=== PATIENT | female | born 1990 | race Caucasian/White ===

== ENCOUNTER 2017-11-16 16:55 | Observation (INO) ==
[2017-11-16] MEDS ORDERED: Ringers Solution, Lactated 1,000 ML IVC SCH (17:15)
[2017-11-16 17:36] LABS: Amphetamine Screen,Urine Negative ng/mL (Cutoff=1000); Barbiturate Screen,Urine Negative ng/mL (Cutoff=200); Benzodiazepines Screen,Urine Negative ng/mL (Cutoff=200); Cannabinoid Screen,Urine Negative ng/mL (Cutoff = 50); Cocaine Screen,Urine Negative ng/mL (Cutoff= 300); Opiate Screen,Urine Negative ng/mL (Cutoff=300); Phencyclidine Screen,Urine Negative ng/mL (Cutoff=25)
--- NOTE | 2017-11-16 17:41 | OB/GYN Progress Note ---
Date of Encounter: 11/16/17 Time of Encounter: 17:39 - Assessment and Plan (1) tachycardia Current Visit: Yes Status: Acute FHR 140, category 1 Reactive NST IV fluid bolus Discharged home with labor precaution and kick counts Follow-up appointment as scheduled and prn (2) 36 weeks gestation of Current Visit: Yes Status: Acute Subjective - Subjective Interval history: at 36 weeks and 3 days presents to triage from office for evaluation of tachycardia. Denies vaginal bleeding, leaking fluid and contractions. Antepartum ROS: movement normal, no loss of fluid, no vaginal bleeding, no contractions Objective - Vital Signs Vital Signs: VSS Intake and Output 11/16/17 11/16/17 11/16/17 07:59 15:59 23:59 Other: Weight 102 kg Patient Weight 11/16/17 23:59 Weight 102 kg - Exam FHR: category 1 FHR comments: FHR 140, Category 1 Auscultation: bilateral: normal Abdomen: Present: soft, gravid Uterus: Present: normal. Absent: tenderness
== END 2017-11-16 19:21 | disposition home or self-care (01) ==
LOC: 1NENULAB
PROVIDERS: ADMIT Obstetrics & Gynecology; ATTEND Obstetrics & Gynecology

== ENCOUNTER 2017-12-09 08:00 | Inpatient (IN) ==
[2017-12-09] MEDS ORDERED: Famotidine 20 MG/2 ML VIAL IVP PRN (08:24)
[2017-12-09] MEDS ORDERED: *HR* Nalbuphine 10 MG/ML AMPUL IVP PRN (08:24)
[2017-12-09] MEDS ORDERED: Naloxone 0.4 MG/ML INJ IVP PRN (08:24)
[2017-12-09] MEDS ORDERED: Metoclopramide 10 MG/2 ML VIAL IVP PRN (08:24)
[2017-12-09] MEDS ORDERED: Ringers Solution, Lactated 1,000 ML IVC SCH (08:30)
[2017-12-09] MEDS ORDERED: Oxytocin 20 units/ LR 1000 mL 20 UNIT/1,000 ML BAG IVC SCH ×2 (08:30→19:56)
[2017-12-09 08:58] LABS: Basophils % 0.2 %; Eosinophils # 0.1 K/mcL (0.0-0.6); Eosinophils % 0.5 %; Hematocrit 36.3 % (35.3-44.9); Hemoglobin 12.8 g/dL (11.5-15.4); Immature Granulocytes % 0.6 % (0-4); Lymphocytes # 2.3 K/mcL (0.6-4.6); Mean Corpuscular HGB Conc 35.3 g/dL (31.6-35.5); Mean Corpuscular Hemoglobin 30.5 pg (28.0-33.3); Mean Corpuscular Volume 86.4 fL (83.0-100.0); Mean Platelet Volume 11.8 fL (9.4-12.4); Monocytes # 0.7 K/mcL (0.0-1.3); Monocytes % 4.6 %; Neutrophils # 11.4 K/mcL (1.6-8.9); Platelet Count 166 K/mcL (140-400); Red Cell Distribution Width 13.3 % (11.5-14.5); Segmented Neutrophils % 78.1 %
--- NOTE | 2017-12-09 09:16 | OB/GYN History & Physical ---
Date of Encounter: 12/09/17 Time of Encounter: 09:05 Assessment and Plan (1) Polyhydramnios Current visit: Yes Status: Acute 39 week 5 days full term IUP Polyhydramnios Mildly elevated VWD factor GBS negative FHR category 1 IV Pitocin induction per protocol Type and screen 2units PRBC Nubain/Epidural at patient request for pain control Anticipate vaginal delivery POC discussed with Dr. Sidhu Qualifiers: Fetus number: single or unspecified fetus Trimester: third trimester Qualified Code(s): O40.3XX0 - Polyhydramnios, third trimester, not applicable or unspecified (2) 39 weeks gestation of Current visit: Yes Status: Acute History of Present Illness HPI: Ms. Farris is a 27 year old G1Po at 39 weeks and 5 days that presents to Labor and Delivery today for scheduled induction of labor due to Polyhydramnios. Denies vaginal bleeding and leaking fluid, states baby is moving well. Denies DAMON , visual disturbances and epigastric pain. complicated with Polyhydramnios and mildly elevated Von Willebrand Disease factor. Past medical history positive for asthma, IBS-C, and Cholecystectomy. POC and IV Pitocin risks discussed, patient states understanding and is agreeable. Desires to breast feed, unsure if she wants epidural for pain control at this time. is present and supportive. Labs: O positive GBS negative RPR non reactive Hep B negative HIV negative Rubella immune Varicella immune UDS negative Past Med Surg Social Fam HX - Past Medical History Medical history: asthma Additional medical history: has not used inhaler in a few years Psychiatric history: no psych history - Past Surgical History Surgical History: cholecystectomy Additional surgical history: 2015 cholecystectomy - Social History Smoking Status: Never smoker Smokeless Tobacco Status: No Alcohol use: none Drug use: none - Family History Mother Living Status: Still Living Hx Family Cardiac Disorders: Yes (hypertension) Hx Family Medical Disorders: Yes (vonwillenbrand's disease, migraines) Obstetrical History - Pregnancies : 1 Medications and Allergies Prenata Chewable Tablet 1 tab PO DAILY 11/16/17 [History] 3 Allergy/AdvReac Type Severity Reaction Status Date / Time ceftriaxone [From Rocephin] Allergy Rash Verified 11/16/17 17:16 Sulfa (Sulfonamide Allergy Rash Verified 11/16/17 17:16 Antibiotics) Exam - Constitutional Constitutional: well developed, well nourished, no acute distress - HEENT HEENT: Mucus Membranes Moist - Neck Neck exam: full ROM, normal inspection - Lungs Respiratory exam: CTAB - Cardiovascular Cardiovascular exam: RRR - Abdomen Abdomen: Present: bowel sounds normal, gravid, non tender - Extremities Extremities exam: full ROM, normal inspection, warm Deep Tendon Reflex Grade: 2+ Normal - Cervix Dilation: 4 (VE in office per Dr. Martin) Effacement: 90 Station: -1 - Uterus Uterus exam: Absent: tender Results Result Diagrams: 12/09/17 08:26 Abnormal lab results WBC 14.6 K/mcL (4.3-11.1) H 12/09/17 08:26 Neutrophils # 11.4 K/mcL (1.6-8.9) H 12/09/17 08:26 All other labs normal. - VTE Reasons for not Prescribing Prophylaxis: Treatment not Indicated - Low risk for VTE
[2017-12-09 09:47] LABS: Amphetamine Screen,Urine Negative ng/mL (Cutoff=1000); Barbiturate Screen,Urine Negative ng/mL (Cutoff=200); Benzodiazepines Screen,Urine Negative ng/mL (Cutoff=200); Cannabinoid Screen,Urine Negative ng/mL (Cutoff = 50); Cocaine Screen,Urine Negative ng/mL (Cutoff= 300); Opiate Screen,Urine Negative ng/mL (Cutoff=300); Phencyclidine Screen,Urine Negative ng/mL (Cutoff=25)
[2017-12-09] MEDS: Ondansetron 4 MG/2 ML VIAL IVP PRN ×2 (11:15→17:03)
--- NOTE | 2017-12-09 11:32 | Anesthesia Evaluation PreOp ---
Date of Encounter: 12/09/17 Time of Encounter: 11:30 - Past History Pulmonary History: Asthma Other Medical History: GERD, Other (ibs, [place]) Anesthesia History: No Prior Anesthetic Complications, Past Anesthesia (álvaro 2014) Alcohol Use: none Drug use: none Medications and Allergies Prenata Chewable Tablet 1 tab PO DAILY 11/16/17 [History] 3 Allergy/AdvReac Type Severity Reaction Status Date / Time ceftriaxone [From Rocephin] Allergy Rash Verified 11/16/17 17:16 Sulfa (Sulfonamide Allergy Rash Verified 11/16/17 17:16 Antibiotics) - Meds/Allergy Pre-op Review Medications Reviewed: Yes Allergies Reviewed: Yes Beta Blockers on Current Med List: No Anesthesia Results - Labs 12/09/17 08:26 Anesthesia Exam 138/88 64 fht 129 Height: 5'4" Weight: 103 NPO (# of Hours): 3 Pain Scale: 8 Pain Scale Used: Numeric (1 - 10) - HEENT Pupil (Motor): Pupils equal Mallampati: II Teeth: Normal Oral Opening: Greater than 3 - DRUM LOADER AND UNLOADER LOC: Oriented DRUM LOADER AND UNLOADER Motor: Normal RUE, Normal LUE, Normal RLE, Normal LLE, Normal Face DRUM LOADER AND UNLOADER Sensory: Normal: RUE, LUE, RLE, LLE, Face - Cardiac Rhythm: Regular Murmur: None - Pulmonary Breath Sounds: bilateral Clear Respiratory Effort: Symmetrical Anesthesia Assess/Plan ASA Score: 3 (asthma, [place]) Modified [place] Scale for Level of Consciousness: Cooperative, oriented, and tranquil Anesthetic Plan: Regional Autologous Blood: No Monitoring Plan: Standard Monitors Recovery Plan: Other (risks discussed questions answered, consented)
[2017-12-09] MEDS ORDERED: *HR* Ropivacaine/PF 0.2% 20 ML VIAL EP ONE (11:35)
[2017-12-09] MEDS ORDERED: *HR* Ropivacaine/PF 0.2% 20 ML VIAL ONE (11:38)
[2017-12-09] MEDS ORDERED: Epidural Premix (fent/bupiv) 110 ML EP ONE (11:38)
[2017-12-09] MEDS ORDERED: Bupivacaine-MPF 0.5% 25 ML, FentaNYL (PF) 250 MCG in 0.9 % Sodium Chloride 80 ML EP SCH (11:45)
[2017-12-09] MEDS ORDERED: Epidural Premix (fent/bupiv) 110 ML EP SCH (11:45)
--- NOTE | 2017-12-09 12:12 | Anesthesia Procedures ---
Date of Encounter: 12/09/17 Time of Encounter: 12:10 Procedures: Anesthesia - Epidural/Spinal Patient ID/Chart reviewed: Yes Patient examined: Yes OB Eval: Gestational age: 39.5 OB Eval: : 1 OB Eval: Hx Para: 0 OB Eval: Dilated at (cm): 5 OB Eval: Contractions: Non-stressed pattern Consent Obtained: Yes Supplemental Oxygen: None/Room Air Site Prep: Aseptic Technique, Sterile prep and drape, 0.5% Chlorhexidine/Alcohol Patient position: upright Local Anesthetic: Lidocaine 1% Amount of Local Anesthetic used: 3 Touhy Needle Gauge: 18 Touhy Needle Depth (cm): 8 Catheter Depth at Skin (cm): 15 Test Dose (1.5% Lido + Epi): Volume given (mls): 3 Test Dose Result: Negative Loading Dose: Fentanyl (mcg): 100 Loading Dose: Other: rop 0.2% 10 cc Loading Dose Administered: Thru Touhy Needle Infusion Med: 0.125% Bupivacaine w/ 2 mcg/ml Fentanyl Infusion Rate (mls/hr): 15 (pcea 5 cc q30") Catheter Secured in Place: Tegaderm Interspace Used: L2-L3 Loss of Resistance (BRODERICK): Yes Blood: No CSF: No Paresthesia: No Procedure: aseptic, ana well vss, effective Vitals + FHT's: 130/87 66 fht 123
--- NOTE | 2017-12-09 14:30 | OB Labor Progress Note ---
Date of Encounter: 12/09/17 Time of Encounter: 14:29 Labor Progress Note - Subjective Subjective: Comfortable,feeling some pressure. - Cervix Cervix: 10/100/+1 - Heart Tones Heart Tones: 120, category 1 - Stannards Stannards: Ctxs every 2 minutes - Interventions Interventions: AROM with return clear amniotic fluid - Plan Plan: Continue routine labor management Labor down Anticipate vaginal delivery POC per consult with Dr. Sidhu
--- NOTE | 2017-12-09 18:03 | OB/GYN Procedure Note ---
Delivery - Delivery Date: 12/09/17 Provider: Sharon Nguyen Intrapartum events: none Delivery induction: oxytocin Delivery augmentation: rupture of membranes Delivery monitor: external FHT, external uterine Anesthesia: epidural Quantitated Blood Loss: 600 - (s) Infant A Delivery Date: 12/09/17 Infant Delivery Time: 15:46 Presentation: vertex Position: EVI Route of delivery: Gender: Female Viability: Viable Pounds: 7 Ounces: 15 Weight Gram: 3.59 kg at 1 minute: 8 at 5 mins: 9 Shoulder Dystocia: not encountered Specimens collected: cord blood Placenta: spontaneous Cord: nuchal cord, delivered through nuchal - Repair Episiotomy: none Laceration Description: Periurethral, Vaginal (Vaginal sulcus) - Complications Delivery complications: hemorrhage Delivery comments: viable female on at 1546 in the EVI position. Delivered through nuchal cord, no shoulder or meconium encountered. Infant crying and vigorous, placed on maternal abdomen warmed, dried and stimulated. Cord double clamped and cut with assistance from father of baby after pulsations ceased. Placenta delivered spontaneously, intact with 3 vessel cord. Upon perineal inspection, bilateral periurethral lacerations were present and repaired with 4- 0 vicryl. Vaginal sulcus tear present, Dr. Sidhu called to do repair. EBL 600 ml , Methergine 0.2 mg IM given with good response. Fundus firm and even with umbilicus with minimal bleeding. Mother and stable in recovery. EKTA Abrams and Sharon Nguyen CNM present for delivery; Dr. Sidhu present for repair of vaginal sulcus tear. - Disposition Mom disposition: stable in LDR [place] disposition: stable in LDR - Comments Comments: Called by Sharon Nguyen CNM evaluate vaginal sulcus tear and other tears that were oozing. Left vaginal sulcus tear along with right periurethral tear were noted. These areas were controlled with 3-0 Monocryl in a [id number] fashion. She was given 1% lidocaine locally for the repair. After assurance of hemostasis, sponge and needle counts were correct.
[2017-12-09] MEDS ORDERED: Sennosides 8.6 MG TABLET PO PRN (19:56)
[2017-12-09] MEDS ORDERED: Oxytocin 20 units/ LR 1000 mL 20 UNIT/1,000 ML BAG IVC ONE (19:56)
[2017-12-09] MEDS ORDERED: Benzocaine/Menthol 56 GM AEROSOL SPRAY TP PRN (19:56)
[2017-12-09] MEDS ORDERED: Lidocaine/EPI 1:100k 1% 30 ML VIAL INFILT ONE (19:56)
[2017-12-09] MEDS ORDERED: Methylergonovine 0.2 MG/ML AMPUL IM ONE (19:56)
[2017-12-09] MEDS ORDERED: Measles/Mumps/Rubella Vacc 0.5 ML VIAL SQ PRN (19:56)
[2017-12-09] MEDS ORDERED: Acetaminophen 325 MG TABLET PO PRN (19:56)
[2017-12-09] MEDS: Ibuprofen 600 MG TABLET PO PRN (22:07)
[2017-12-10] MEDS: Ibuprofen 600 MG TABLET PO PRN ×2 (04:45→17:27)
[2017-12-10 07:49] VITALS: BP 107/72
[2017-12-10] MEDS ORDERED: Prenatal Vit/FA 1 EACH TABLET PO SCH (09:00)
--- NOTE | 2017-12-10 10:54 | Discharge Summary ---
Date of Encounter: 12/10/17 Time of Encounter: 10:51 - Discharge Diagnosis (1) Vaginal delivery Priority: Primary Status: Acute Comments: Pain well controlled with by mouth pain meds Tolerating regular diet Voiding independently Passing flatus, but no BM yet Lochia light Ambulating independently Vital signs stable Discharge home today (2) Breast feeding status of mother Priority: Secondary Status: Acute Comments: Follow-up with as needed - Discharge Medications Prescriptions: Ibuprofen [Motrin] 600 mg PO Q6HR PRN #30 tablet PRN Reason: Cramping Docusate [Colace] 100 mg PO BID #30 capsule Home Medications: Prenata Chewable Tablet 1 tab PO DAILY 11/16/17 [History] Acetaminophen [Tylenol] 650 mg PO Q6HR PRN tablet 12/10/17 [Rx] Benzocaine/Menthol [place] [Dermoplast [place]] 1 appl TP QID PRN aerosol 12/10/17 [Rx] Docusate [Colace] 100 mg PO BID #30 capsule 12/10/17 [Rx] Ibuprofen [Motrin] 600 mg PO Q6HR PRN #30 tablet 12/10/17 [Rx] Allergies/Adverse Reactions: 3 Allergy/AdvReac Type Severity Reaction Status Date / Time ceftriaxone [From Rocephin] Allergy Rash Verified 11/16/17 17:16 Sulfa (Sulfonamide Allergy Rash Verified 11/16/17 17:16 Antibiotics) Data Procedures and tests throughout hospitalization: Laboratory Tests 12/09/17 12/09/17 12/09/17 08:26 08:32 08:32 WBC 14.6 H RBC 4.20 Hgb 12.8 Hct 36.3 MCV 86.4 MCH 30.5 MCHC 35.3 RDW 13.3 Plt Count 166 MPV 11.8 Immature Gran % 0.6 Seg Neutrophils % 78.1 Lymphocytes % 16.0 Monocytes % 4.6 Eosinophils % 0.5 Basophils % 0.2 Neutrophils # 11.4 H Lymphocytes # 2.3 Monocytes # 0.7 Eosinophils # 0.1 Basophils # 0.0 Urine Opiates Screen Negative Ur Barbiturates Screen Negative Ur Phencyclidine Scrn Negative Ur Amphetamines Screen Negative U Benzodiazepines Scrn Negative Urine Cocaine Screen Negative U Marijuana (THC) Screen Negative Blood Type O POSITIVE Antibody Screen NEGATIVE Crossmatch See Detail Date of admission: 12/09/17 08:01 Primary care physician: PCP NONE Consults: 12/09/17 19:56 Consult to Software Systems Engineer [CONS] Routine Comment: Vaginal delivery, consult needed Discharging clinician: Sharon Pace Anticipated date of discharge: 12/10/17 - Patient Status Disposition: Home, Self-Care Condition: Good Overall status at discharge: patient is progressing back to baseline - Discharge Instructions Follow Up With: NONE,PCP [Primary Care Provider] - Libby Martin DO [Partnered Physician] - - Diet and Activity Activity: increase activity as tolerated Diet: regular diet Hospital Course Reason for admission: IUP at term Delivery: Episiotomy: none Laceration: vaginal side wall Other procedures: none complications: none Discharge diagnosis: IUP at term delivered baby: female Time Attestation: Total time spent providing and/or coordinating discharge services: Time Spent: Less than 30 minutes Exam - Constitutional Vitals: Temp Pulse Resp BP Pulse Ox 98.1 F 70 16 107/72 97 12/10/17 07:48 12/10/17 07:48 12/10/17 07:48 12/10/17 07:48 12/10/17 04:45 General appearance IM: A&O X 3 - Respiratory Respiratory exam: Present: CTAB - Cardiovascular Cardiovascular exam IM: Present: RRR, +S1, +S2 - GI/Abdominal GI/Abdominal exam IM: normal bowel sounds, no peritoneal signs - Rectal Rectal exam: deferred - Uterine Tone: Firm Uterus Position: 1 Finger Below Umbilicus, Midline - Extremities Exam Extremities exam IM: Present: normal capillary refill, normal inspection, radial pulses palpable and symmetrical - Neurological Exam Neurological exam: alert, oriented X3 - Psychiatric Additional comments: Signs and symptoms of depression discussed and patient and partner verbalizes understanding of when to call for help.
[2017-12-10 11:30] LABS: Basophils % 0.2 %; Eosinophils # 0.1 K/mcL (0.0-0.6); Eosinophils % 0.4 %; Hematocrit 30.4 % (35.3-44.9); Immature Granulocytes % 0.5 % (0-4); Lymphocytes % 12.5 %; Mean Corpuscular HGB Conc 32.9 g/dL (31.6-35.5); Mean Corpuscular Hemoglobin 28.9 pg (28.0-33.3); Mean Corpuscular Volume 87.9 fL (83.0-100.0); Mean Platelet Volume 11.9 fL (9.4-12.4); Monocytes # 0.9 K/mcL (0.0-1.3); Monocytes % 5.5 %; Neutrophils # 13.2 K/mcL (1.6-8.9); Platelet Count 152 K/mcL (140-400); Red Blood Count 3.46 M/mcL (3.82-4.97); Red Cell Distribution Width 13.4 % (11.5-14.5); Segmented Neutrophils % 80.9 %
== END 2017-12-10 18:32 | disposition home or self-care (01) | DRG 774 ==
LOC: 1NENULAB 08:01 → 1NENUOBS 20:07
PROVIDERS: ADMIT Obstetrics & Gynecology; ATTEND Obstetrics & Gynecology